=== PATIENT | male | born 1960 | race Caucasian/White ===

== ENCOUNTER 2017-02-10 05:12 | Day surgery (SDC) | payer OTHER ==
[2017-02-09 10:33] LABS: HEMOGLOBIN 16.7 g/dL (13.5-17.5); MCH 31.7 pg (26.0-34.0); MCHC 34.1 g/dL (31.0-37.0); MEAN PLATELET VOLUME 10.5 fL (7.4-10.4); RBC 5.27 10x6/uL (4.20-6.10); RDW 12.9 % (11.5-14.5); WBC 12.4 10x3/uL (4.8-10.8)
[~2017-02-10] VITALS: Ht 182.9 cm; Wt 93.4 kg
[~2017-02-10 05:12] MED LIST: DESERYL100 MG PO; LISINOPRIL10 MG PO
[2017-02-10 07:04] VITALS: BP 134/76; Ht 182.9 cm; Wt 93.4 kg
[2017-02-10] MEDS ORDERED: HYDROCODON-ACE1 EAC7 PO (10:09)
[2017-02-10] MEDS ORDERED: FLOMAX0.4 MG PO (10:11)
[2017-02-10] MEDS ORDERED: FUROSEMIDE20 MG PO (10:11)
--- NOTE | 2017-02-10 14:29 | NUR ---
1230--PT VOIDS WITHOUT DIFFICULTY, IV DC'D. JUAN PALUMBO 1247--DISCHARGE INSTRUCTIONS GIVEN, PT VERBALIZES UNDERSTANDING. PT OFF UNIT VIA WC. JUAN PALUMBO
--- NOTE | 2017-02-10 15:27 | OP ---
PATIENT NAME: ADALBERTO ROUSSEAU MEDICAL RECORD: [id number] :64 LOCATION:[facility] ADMISSION DATE: SURGEON: NAYELI GAYTAN MD DATE OF OPERATION: 02/10/2017 SURGEON: Nayeli Gaytan MD PREOPERATIVE DIAGNOSIS: Left inguinal hernia. POSTOPERATIVE DIAGNOSIS: Left inguinal hernia. PROCEDURE PERFORMED: Left inguinal hernia repair with ProGrip mesh. ANESTHESIA: General. COMPLICATIONS: None. SPECIMENS: Cord lipoma. Case was clean. ESTIMATED BLOOD LOSS: 30 cc. OPERATIVE COURSE: After consent was obtained, the patient was taken to the operating room and placed in the supine position on the operating table. Next, general anesthesia was given via endotracheal intubation. After a timeout was performed that confirmed the correct patient and procedure, the left inguinal region was prepped and draped in typical sterile fashion. An Ioban dressing was placed. External landmarks were identified. A 20 cc of local anesthetic was injected for an inguinal block. The skin was incised with a #15 blade scalpel. Dissection continued to the level of the external oblique fascia using electrocautery. At this time, self-retaining retractor was placed. Additional 10 cc of local anesthetic was injected below the external oblique fascia. The fascia was incised with a 15-blade scalpel. The remaining portion of the fascia was then opened with a Metzenbaum scissor. It was opened medially through the external ring. It was opened laterally towards the ASIS. Hemostats were placed in the external oblique fascia. Flaps were created using blunt dissection. The spermatic cord was dissected off the pubic tubercle. A Teodoro dressing was placed. The patient had a very large lipoma on the cord that was dissected off. The cord structures were identified and preserved. Cord lipoma was in the anterolateral position. It was dissected down the level of the internal ring, at which time the hernia sac was identified. The hernia sac was opened. It did contain a loop of bowel. The hernia sac was closed and placed back into the peritoneal cavity. At this time, a standard Shahid repair was done with a ProGrip mesh. The mesh was secured to the pubic tubercle medially using interrupted 2-0 Prolene and secured inferiorly to the inguinal ligament. The internal ring was loosely reapproximated superiorly. The mesh was sutured to the conjoined tendon. The external oblique fascia was then closed with an 0 Vicryl suture, loosely recreating the external ring. The operative site was copiously irrigated and suctioned. Bola fascia was closed with 3-0 Vicryl suture. The skin was closed with 4-0 Stratafix, Mastisol and Steri-Strips. At the end of the case, all needle and instrument counts were correct. No complications occurred. The patient was extubated and transferred to the PACU in stable condition. OPERATIVE REPORT [id number] ADALBERTO ROUSSEAU TRANSINT:[id number] Voice Confirmation ID: [id number] DOCUMENT ID: [id number] NAYELI GAYTAN MD at 1527 CC: [id number] DICTATION DATE: 02/10/17 1016 ENGAGEMENT LEAD: 02/10/17 1330 [facility] 02/10/17 [id number] [place] [address]
== END 2017-02-10 12:45 | disposition home or self-care (01) ==
LOC: D.OPS 05:12 → D.PAN 08:30 → D.OPS 08:30
PROVIDERS: Anesthesiology
DX: K40.90 Unilateral inguinal hernia, without obstruction or gangrene, not specified as recurrent (principal); I10 Essential (primary) hypertension; Z01.812 Encounter for preprocedural laboratory examination